=== PATIENT | male | born 1955 | race Caucasian/White ===

== ENCOUNTER 2017-11-17 12:49 | Inpatient (IN) | payer OTHER ==
[~2017-11-17 12:49] MED LIST: ATROPINE 1 MG/10 ML SYRINGE; EPINEPHrine 0.1 MG/ML SYG
[2017-11-17] MEDS ORDERED: ONDANSETRON 4 MG INJ IV (14:00)
[2017-11-17] MEDS ORDERED: NACL 0.9% 3 ML SYG IV (14:00)
[2017-11-17] MEDS ORDERED: hydrALAzine 20 MG INJ IV (14:00)
[2017-11-17 15:26] LABS: CREATINE KINASE 107 IU/L (23-200)
[2017-11-17 15:38] LABS: CK INDEX 3.5; CK-MB 3.71 ng/ml (0.0-2.4); TROPONIN-I < 0.012 ng/ml (0.000-0.120)
[2017-11-17] MEDS: METHYLPREDNISOLONE 125 MG INJ IV ×2 (16:06→21:49)
[2017-11-17] MEDS: ALBUTEROL 0.083% (NEB) 2.5 MG/3 ML AMP HHN ×2 (17:00→21:18)
[2017-11-17 18:53] LABS: AMPHETAMINE/METHAMPHETAMINE NEGATIVE (NEGATIVE); BARBITURATES NEGATIVE (NEGATIVE); BENZODIAZEPINES NEGATIVE (NEGATIVE); CANNABINOIDS NEGATIVE (NEGATIVE); COCAINE NEGATIVE (NEGATIVE); OPIATES NEGATIVE (NEGATIVE)
[2017-11-17] MEDS: FAMOTIDINE 20 MG TAB PO (21:47)
[2017-11-18] MEDS: ALBUTEROL 0.083% (NEB) 2.5 MG/3 ML AMP HHN ×6 (01:31→21:01)
[2017-11-18] MEDS: METHYLPREDNISOLONE 125 MG INJ IV ×2 (05:51→21:57)
[2017-11-18 07:15] LABS: ADD MAN DIFF? NO
[2017-11-18 07:19] LABS: BASOPHILS % 0.1 % (0.0-2.0); HEMATOCRIT 44.8 % (42.0-52.0); HEMOGLOBIN 15.4 g/dl (14.0-18.0); LYMPHOCYTES # 1.4 10^3/ul (0.8-2.9); LYMPHOCYTES % 7.2 % (15.0-51.0); MEAN CORPUSCULAR HEMOGLOBIN 32.2 pg (29.0-33.0); MEAN CORPUSCULAR HGB CONC 34.4 g/dl (32.0-37.0); MEAN CORPUSCULAR VOLUME 93.5 fl (82.0-101.0); MEAN PLATELET VOLUME 10.1 fl (7.4-10.4); MONOCYTE # 0.9 10^3/ul (0.3-0.9); MONOCYTES % 4.3 % (0.0-11.0); NEUTROPHIL # 17.5 10^3/ul (1.6-7.5); NEUTROPHILS % 87.6 % (39.0-77.0); PLATELET COUNT 266 10^3/UL (140-415); RED BLOOD COUNT 4.79 10^6/ul (4.70-6.10); RED CELL DISTRIBUTION WIDTH 13.7 % (11.5-14.5)
[2017-11-18 07:34] LABS: HEMOGLOBIN A1C 5.5 % (0-5.9)
[2017-11-18 07:40] LABS: INR 0.88; PT RATIO 0.9
[2017-11-18 07:41] LABS: PARTIAL THROMBOPLASTIN TIME 24.2 Sec (25.0-35.0)
[2017-11-18 07:51] LABS: ALANINE AMINOTRANSFERASE 22 IU/L (13-69); ALBUMIN 3.7 g/dl (3.3-4.9); ALKALINE PHOSPHATASE 45 IU/L (42-121); ANION GAP 8 (8-16); ASPARTATE AMINO TRANSFERASE 24 IU/L (15-46); BILIRUBIN,INDIRECT 0.2 mg/dl (0-1.1); BILIRUBIN,TOTAL 0.2 mg/dl (0.2-1.3); BLOOD UREA NITROGEN 13 mg/dl (7-20); CALCIUM 9.2 mg/dl (8.4-10.2); CARBON DIOXIDE 33 mmol/L (21-31); CHLORIDE 100 mmol/L (97-110); CREATININE 0.69 mg/dl (0.61-1.24); GLUCOSE 131 mg/dl (70-220); POTASSIUM 4.3 mmol/L (3.5-5.1); SODIUM 137 mmol/L (135-144)
[2017-11-18 08:12] LABS: FREE T4 (FREE THYROXINE) 0.86 ng/dl (0.78-2.44)
[2017-11-18 08:16] LABS: PHOSPHORUS 3.6 mg/dl (2.5-4.9)
[2017-11-18 08:16] LABS: CHOL/HDL RATIO 1.9 RATIO; CHOLESTEROL 154 mg/dl (100-200); HDL CHOLESTEROL 79 mg/dl (30-78); LDL CHOLESTEROL,CALCULATED 67 mg/dl; MAGNESIUM 1.7 mg/dl (1.7-2.5); TRIGLYCERIDES 40 mg/dl (0-149)
[2017-11-18 08:26] LABS: THYROID STIMULATING HORMONE 0.548 MIU/L (0.465-4.680)
[2017-11-18] MEDS: ENOXAPARIN 40 MG/0.4 ML SYG SC (09:16)
[2017-11-18] MEDS: FAMOTIDINE 20 MG TAB PO (09:16)
[2017-11-18] MEDS: NICOTINE (14 MG/24 HR) PATCH TRANSDERM (09:17)
[2017-11-18 12:28] LABS: CREATINE KINASE 69 IU/L (23-200)
[2017-11-18 12:41] LABS: CK INDEX 4.2; CK-MB 2.91 ng/ml (0.0-2.4); TROPONIN-I < 0.012 ng/ml (0.000-0.120)
[2017-11-18] MEDS: FLUTICASONE/VILANTEROL 200-25 INH DEVICE INH (15:26)
[2017-11-18] MEDS: METHYLPREDNISOLONE 40 MG INJ IV (15:26)
[2017-11-18] MEDS: TIOTROPIUM 18 MCG CAPSULE INHA DEV INH (15:27)
[2017-11-18] MEDS ORDERED: METOPROLOL 5 MG INJ (15:58)
[2017-11-18] MEDS: METOPROLOL 5 MG INJ IV (16:02)
[2017-11-18 16:56] LABS: CREATINE KINASE 157 IU/L (23-200)
[2017-11-18 17:09] LABS: CK INDEX 1.9; TROPONIN-I < 0.012 ng/ml (0.000-0.120)
[2017-11-18] MEDS: PROPOFOL 100 ML IV ×2 (17:09→20:44)
[2017-11-18 17:49] LABS: AADO2 Arterial 40.9 mmHg (7.0-24.0); Allen Test ACCEPTAB; Arterial Base Excess -2.5 mmol/L (-3.0-3); Arterial Blood Gas Oxygen Sat 99.5 mmHG (95.0-98.0); Arterial COHb 0.4 % (0.0-3.0); Arterial Fraction of Oxyhgb 98.7 % (93.0-99.0); Arterial MetHb 0.4 % (0.0-1.5); Arterial Total Hemglobin 15.8 g/dl (12.0-18.0); Arterial pCO2 66.9 mmhg (35-45); Blood Gas Low PEEP Setting 0 cmH2O; MODE VENT - AC; Site Right Radial
[2017-11-18] MEDS: SOD CHLORIDE 0.9% 1,000 ML IV (17:54)
[2017-11-18] MEDS: SOD CHLORIDE 0.9% 100 ML (18:31)
[2017-11-18] MEDS: IOHEXOL 100 ML (18:31)
[2017-11-18] MEDS: LORAZEPAM 2 MG INJ IV (19:44)
[2017-11-18] MEDS: FENTAnyl (DRIP) 1000 mcg/100mL 100 ML IV (20:57)
[2017-11-18 21:46] LABS: AADO2 Arterial 72.8 mmHg (7.0-24.0); Allen Test ACCEPTAB; Arterial Base Excess -0.6 mmol/L (-3.0-3); Arterial Blood Gas Oxygen Sat 97.1 mmHG (95.0-98.0); Arterial COHb 0.3 % (0.0-3.0); Arterial Fraction of Oxyhgb 96.5 % (93.0-99.0); Arterial HCO3 28.1 mmol/L (22.0-26.0); Arterial MetHb 0.3 % (0.0-1.5); Arterial Total Hemglobin 14.6 g/dl (12.0-18.0); Arterial pCO2 63.8 mmhg (35-45); MODE VENT - AC; Site Right Radial
[2017-11-18] MEDS: FAMOTIDINE 20 MG INJ IV (21:58)
[2017-11-19] MEDS: ALBUTEROL 0.083% (NEB) 2.5 MG/3 ML AMP HHN (01:23)
[2017-11-19] MEDS: LORAZEPAM 2 MG INJ IV (02:26)
[2017-11-19] MEDS: ALBUTEROL HFA 8 GM INHALER INH ×5 (04:38→21:07)
[2017-11-19 05:31] LABS: ADD MAN DIFF? NO
[2017-11-19 05:32] LABS: ABNORMAL IP MESSAGE 1; BASOPHILS % 0.1 % (0.0-2.0); HEMATOCRIT 42.1 % (42.0-52.0); HEMOGLOBIN 14.2 g/dl (14.0-18.0); LYMPHOCYTES # 0.5 10^3/ul (0.8-2.9); LYMPHOCYTES % 2.2 % (15.0-51.0); MEAN CORPUSCULAR HEMOGLOBIN 31.6 pg (29.0-33.0); MEAN CORPUSCULAR HGB CONC 33.7 g/dl (32.0-37.0); MEAN CORPUSCULAR VOLUME 93.6 fl (82.0-101.0); MEAN PLATELET VOLUME 10.1 fl (7.4-10.4); MONOCYTE # 0.9 10^3/ul (0.3-0.9); NEUTROPHIL # 20.1 10^3/ul (1.6-7.5); NEUTROPHILS % 92.9 % (39.0-77.0); PLATELET COUNT 229 10^3/UL (140-415); POSITIVE DIFF @See below; RED CELL DISTRIBUTION WIDTH 14.5 % (11.5-14.5)
[2017-11-19 05:32] LABS: WHITE BLOOD COUNT 21.6 10^3/ul (4.8-10.8)
[2017-11-19 06:11] LABS: ALANINE AMINOTRANSFERASE 42 IU/L (13-69); ALBUMIN 3.3 g/dl (3.3-4.9); ALBUMIN/GLOBULIN RATIO 1.37; ALKALINE PHOSPHATASE 38 IU/L (42-121); ANION GAP 14 (8-16); ASPARTATE AMINO TRANSFERASE 52 IU/L (15-46); BILIRUBIN,INDIRECT 0.2 mg/dl (0-1.1); BILIRUBIN,TOTAL 0.2 mg/dl (0.2-1.3); BLOOD UREA NITROGEN 17 mg/dl (7-20); CALCIUM 8.6 mg/dl (8.4-10.2); CARBON DIOXIDE 30 mmol/L (21-31); CHLORIDE 99 mmol/L (97-110); CREATININE 0.84 mg/dl (0.61-1.24); GLUCOSE 134 mg/dl (70-220); SODIUM 139 mmol/L (135-144); TOTAL PROTEIN 5.7 g/dl (6.1-8.1)
[2017-11-19 06:17] LABS: MAGNESIUM 1.9 mg/dl (1.7-2.5)
[2017-11-19 06:17] LABS: PHOSPHORUS 4.5 mg/dl (2.5-4.9)
[2017-11-19 06:23] LABS: TROPONIN-I 0.087 ng/ml (0.000-0.120)
[2017-11-19] MEDS: METHYLPREDNISOLONE 125 MG INJ IV ×3 (07:00→21:37)
[2017-11-19] MEDS: SOD CHLORIDE 0.9% 1,000 ML IV ×2 (07:00→17:53)
[2017-11-19] MEDS: FAMOTIDINE 20 MG INJ IV ×2 (08:29→21:37)
[2017-11-19] MEDS: NICOTINE (14 MG/24 HR) PATCH TRANSDERM (08:33)
[2017-11-19] MEDS: ENOXAPARIN 40 MG/0.4 ML SYG SC (08:34)
[2017-11-19 09:02] LABS: AADO2 Arterial 107.7 mmHg (7.0-24.0); Arterial Blood Gas Oxygen Sat 94.9 mmHG (95.0-98.0); Arterial COHb 0.6 % (0.0-3.0); Arterial Fraction of Oxyhgb 94.1 % (93.0-99.0); Arterial HCO3 30.1 mmol/L (22.0-26.0); Arterial MetHb 0.2 % (0.0-1.5); Arterial pCO2 56.2 mmhg (35-45); MODE VENT - AC; Site Right Brachial
[2017-11-19] MEDS: PROPOFOL 100 ML IV ×2 (11:37→19:26)
[2017-11-19] MEDS ORDERED: LIDOCAINE 1% (MPF) 5 ML VIAL SC (12:30)
[2017-11-19] MEDS ORDERED: BALSAM PERU/CASTOR OIL 60 GM TUBE TOP (21:00)
[2017-11-20] MEDS: ALBUTEROL HFA 8 GM INHALER INH ×6 (00:57→20:33)
[2017-11-20] MEDS: PROPOFOL 100 ML IV ×3 (05:26→19:12)
[2017-11-20 05:50] LABS: ADD MAN DIFF? NO
[2017-11-20 05:58] LABS: BASOPHILS % 0.1 % (0.0-2.0); HEMATOCRIT 41.3 % (42.0-52.0); HEMOGLOBIN 13.6 g/dl (14.0-18.0); LYMPHOCYTES % 4.5 % (15.0-51.0); MEAN CORPUSCULAR HEMOGLOBIN 31.7 pg (29.0-33.0); MEAN CORPUSCULAR HGB CONC 32.9 g/dl (32.0-37.0); MEAN CORPUSCULAR VOLUME 96.3 fl (82.0-101.0); MEAN PLATELET VOLUME 11.1 fl (7.4-10.4); MONOCYTE # 1.4 10^3/ul (0.3-0.9); MONOCYTES % 6.7 % (0.0-11.0); NEUTROPHIL # 18.4 10^3/ul (1.6-7.5); NEUTROPHILS % 87.8 % (39.0-77.0); PLATELET COUNT 159 10^3/UL (140-415); RED BLOOD COUNT 4.29 10^6/ul (4.70-6.10); RED CELL DISTRIBUTION WIDTH 14.9 % (11.5-14.5)
[2017-11-20] MEDS: METHYLPREDNISOLONE 125 MG INJ IV ×3 (06:02→21:35)
[2017-11-20] MEDS: FENTAnyl (DRIP) 1000 mcg/100mL 100 ML IV (06:13)
[2017-11-20 06:29] LABS: ALANINE AMINOTRANSFERASE 38 IU/L (13-69); ALBUMIN 2.8 g/dl (3.3-4.9); ALBUMIN/GLOBULIN RATIO 1.16; ALKALINE PHOSPHATASE 31 IU/L (42-121); ANION GAP 9 (8-16); ASPARTATE AMINO TRANSFERASE 41 IU/L (15-46); BILIRUBIN,INDIRECT 0.1 mg/dl (0-1.1); BILIRUBIN,TOTAL 0.1 mg/dl (0.2-1.3); BLOOD UREA NITROGEN 18 mg/dl (7-20); CALCIUM 8.3 mg/dl (8.4-10.2); CARBON DIOXIDE 31 mmol/L (21-31); CHLORIDE 103 mmol/L (97-110); CREATININE 0.65 mg/dl (0.61-1.24); GLUCOSE 111 mg/dl (70-220); POTASSIUM 4.8 mmol/L (3.5-5.1); SODIUM 138 mmol/L (135-144); TOTAL PROTEIN 5.2 g/dl (6.1-8.1)
[2017-11-20 06:38] LABS: PHOSPHORUS 3.6 mg/dl (2.5-4.9)
[2017-11-20 06:47] LABS: TROPONIN-I 0.025 ng/ml (0.000-0.120)
[2017-11-20] MEDS: FAMOTIDINE 20 MG INJ IV ×2 (07:59→21:35)
[2017-11-20] MEDS: NICOTINE (14 MG/24 HR) PATCH TRANSDERM (07:59)
[2017-11-20] MEDS: SOD CHLORIDE 0.9% 1,000 ML IV ×2 (08:00→21:37)
[2017-11-20] MEDS: ENOXAPARIN 40 MG/0.4 ML SYG SC (08:01)
[2017-11-20] MEDS ORDERED: COLLAGENASE 5 GM (UD JAR) TOP (09:00)
[2017-11-20] MEDS: DOCUSATE SODIUM 10 MG/ML (10ML CUP) NGT ×2 (13:30→21:35)
[2017-11-20] MEDS ORDERED: POLYETHYLENE GLYCOL 17 GM PACKET NGT (13:30)
[2017-11-20] MEDS: LORAZEPAM 2 MG INJ IV ×2 (15:15→23:24)
[2017-11-20] MEDS: IPRATROPIUM (NEB) 0.5 MG/2.5 ML AMP HHN ×2 (17:03→20:22)
[2017-11-21] MEDS: ALBUTEROL HFA 8 GM INHALER INH ×6 (01:31→21:43)
[2017-11-21] MEDS: IPRATROPIUM (NEB) 0.5 MG/2.5 ML AMP HHN ×4 (01:31→19:29)
[2017-11-21] MEDS: PROPOFOL 100 ML IV ×4 (02:03→22:31)
[2017-11-21] MEDS: SOD CHLORIDE 0.9% 1,000 ML IV (02:03)
[2017-11-21 05:19] LABS: ADD MAN DIFF? NO
[2017-11-21 05:28] LABS: BASOPHILS % 0.1 % (0.0-2.0); HEMATOCRIT 43.7 % (42.0-52.0); HEMOGLOBIN 14.4 g/dl (14.0-18.0); LYMPHOCYTES # 0.8 10^3/ul (0.8-2.9); LYMPHOCYTES % 4.8 % (15.0-51.0); MEAN CORPUSCULAR HEMOGLOBIN 31.8 pg (29.0-33.0); MEAN CORPUSCULAR VOLUME 96.5 fl (82.0-101.0); MONOCYTE # 1.1 10^3/ul (0.3-0.9); MONOCYTES % 6.5 % (0.0-11.0); NEUTROPHIL # 15.2 10^3/ul (1.6-7.5); PLATELET COUNT 199 10^3/UL (140-415); RED BLOOD COUNT 4.53 10^6/ul (4.70-6.10); RED CELL DISTRIBUTION WIDTH 14.5 % (11.5-14.5)
[2017-11-21 05:28] LABS: WHITE BLOOD COUNT 17.3 10^3/ul (4.8-10.8)
[2017-11-21 05:53] LABS: ALANINE AMINOTRANSFERASE 37 IU/L (13-69); ALBUMIN/GLOBULIN RATIO 1.25; ALKALINE PHOSPHATASE 36 IU/L (42-121); ANION GAP 8 (8-16); ASPARTATE AMINO TRANSFERASE 32 IU/L (15-46); BILIRUBIN,INDIRECT 0.1 mg/dl (0-1.1); BILIRUBIN,TOTAL 0.1 mg/dl (0.2-1.3); BLOOD UREA NITROGEN 21 mg/dl (7-20); CALCIUM 8.5 mg/dl (8.4-10.2); CARBON DIOXIDE 32 mmol/L (21-31); CHLORIDE 104 mmol/L (97-110); CREATININE 0.69 mg/dl (0.61-1.24); GLUCOSE 133 mg/dl (70-220); POTASSIUM 4.1 mmol/L (3.5-5.1); SODIUM 140 mmol/L (135-144); TOTAL PROTEIN 5.4 g/dl (6.1-8.1)
[2017-11-21 06:10] LABS: MAGNESIUM 1.8 mg/dl (1.7-2.5)
[2017-11-21 06:10] LABS: PHOSPHORUS 2.6 mg/dl (2.5-4.9)
[2017-11-21] MEDS: METHYLPREDNISOLONE 125 MG INJ IV ×3 (06:46→21:32)
[2017-11-21] MEDS: FAMOTIDINE 20 MG INJ IV ×2 (08:39→21:31)
[2017-11-21] MEDS: DOCUSATE SODIUM 10 MG/ML (10ML CUP) NGT ×2 (08:39→21:31)
[2017-11-21] MEDS: NICOTINE (14 MG/24 HR) PATCH TRANSDERM (08:41)
[2017-11-21] MEDS: AZITHROMYCIN 500MG/NS (PMX) 250 ML IVPB (11:22)
[2017-11-21] MEDS: AMLODIPINE 5 MG TAB GTB (11:22)
[2017-11-21] MEDS: IPRATROPIUM (HFA) 12.9 GM INHALER INH (21:00)
[2017-11-22] MEDS: ALBUTEROL HFA 8 GM INHALER INH ×6 (01:31→21:08)
[2017-11-22] MEDS: IPRATROPIUM (HFA) 12.9 GM INHALER INH ×4 (01:31→19:21)
[2017-11-22] MEDS: LORAZEPAM 2 MG INJ IV (04:21)
[2017-11-22] MEDS: PROPOFOL 100 ML IV ×2 (04:21→16:15)
[2017-11-22 05:09] LABS: ADD MAN DIFF? NO
[2017-11-22 05:13] LABS: WHITE BLOOD COUNT 17.1 10^3/ul (4.8-10.8)
[2017-11-22 05:13] LABS: BASOPHILS % 0.1 % (0.0-2.0); HEMATOCRIT 40.1 % (42.0-52.0); HEMOGLOBIN 13.7 g/dl (14.0-18.0); LYMPHOCYTES # 0.8 10^3/ul (0.8-2.9); LYMPHOCYTES % 4.4 % (15.0-51.0); MEAN CORPUSCULAR HEMOGLOBIN 31.9 pg (29.0-33.0); MEAN CORPUSCULAR HGB CONC 34.2 g/dl (32.0-37.0); MEAN CORPUSCULAR VOLUME 93.3 fl (82.0-101.0); MEAN PLATELET VOLUME 10.5 fl (7.4-10.4); MONOCYTE # 1.4 10^3/ul (0.3-0.9); NEUTROPHIL # 14.9 10^3/ul (1.6-7.5); NEUTROPHILS % 86.8 % (39.0-77.0); PLATELET COUNT 240 10^3/UL (140-415); RED CELL DISTRIBUTION WIDTH 14.1 % (11.5-14.5)
[2017-11-22 06:07] LABS: MAGNESIUM 1.7 mg/dl (1.7-2.5)
[2017-11-22 06:07] LABS: PHOSPHORUS 2.9 mg/dl (2.5-4.9)
[2017-11-22 06:08] LABS: ALBUMIN 2.9 g/dl (3.3-4.9); ALBUMIN/GLOBULIN RATIO 1.26; ALKALINE PHOSPHATASE 31 IU/L (42-121); ANION GAP 6 (8-16); ASPARTATE AMINO TRANSFERASE 27 IU/L (15-46); BILIRUBIN,INDIRECT 0.2 mg/dl (0-1.1); BILIRUBIN,TOTAL 0.2 mg/dl (0.2-1.3); BLOOD UREA NITROGEN 24 mg/dl (7-20); CALCIUM 8.5 mg/dl (8.4-10.2); CARBON DIOXIDE 33 mmol/L (21-31); CHLORIDE 104 mmol/L (97-110); GLUCOSE 142 mg/dl (70-220); SODIUM 139 mmol/L (135-144); TOTAL PROTEIN 5.2 g/dl (6.1-8.1)
[2017-11-22] MEDS: METHYLPREDNISOLONE 125 MG INJ IV ×3 (07:02→21:30)
[2017-11-22 07:26] LABS: ALANINE AMINOTRANSFERASE 38 IU/L (13-69)
[2017-11-22] MEDS ORDERED: DEXMEDETOMIDINE HCL 200 MCG in SOD CHLORIDE 0.9% 48 ML IV (09:00)
[2017-11-22] MEDS: NICOTINE (14 MG/24 HR) PATCH TRANSDERM (09:24)
[2017-11-22] MEDS: DOCUSATE SODIUM 10 MG/ML (10ML CUP) NGT ×2 (09:24→21:30)
[2017-11-22] MEDS: FAMOTIDINE 20 MG INJ IV ×2 (09:25→21:30)
[2017-11-22] MEDS: AMLODIPINE 5 MG TAB GTB (09:25)
[2017-11-22] MEDS: DEXMEDETOMIDINE HCL 200 MCG in SOD CHLORIDE 0.9% 48 ML IV ×3 (10:55→21:31)
[2017-11-22] MEDS: AZITHROMYCIN 500MG/NS (PMX) 250 ML IVPB (12:34)
[2017-11-22 12:47] LABS: AADO2 Arterial 101.2 mmHg (7.0-24.0); Allen Test ACCEPTAB; Arterial Base Excess 3.1 mmol/L (-3.0-3); Arterial Blood Gas Oxygen Sat 94.7 mmHG (95.0-98.0); Arterial COHb 0.7 % (0.0-3.0); Arterial Fraction of Oxyhgb 93.9 % (93.0-99.0); Arterial MetHb 0.1 % (0.0-1.5); Arterial Total Hemglobin 14.3 g/dl (12.0-18.0); Arterial pCO2 38.6 mmhg (35-45); Blood Gas PS 10; MODE VENT - CPAP; Site Right Radial
[2017-11-23] MEDS: IPRATROPIUM (HFA) 12.9 GM INHALER INH ×3 (01:06→14:06)
[2017-11-23] MEDS: ALBUTEROL HFA 8 GM INHALER INH ×4 (01:06→14:06)
[2017-11-23 05:08] LABS: ADD MAN DIFF? NO
[2017-11-23 05:20] LABS: BASOPHILS % 0.1 % (0.0-2.0); HEMATOCRIT 42.6 % (42.0-52.0); HEMOGLOBIN 14.3 g/dl (14.0-18.0); LYMPHOCYTES # 0.9 10^3/ul (0.8-2.9); LYMPHOCYTES % 7.1 % (15.0-51.0); MEAN CORPUSCULAR HEMOGLOBIN 31.5 pg (29.0-33.0); MEAN CORPUSCULAR HGB CONC 33.6 g/dl (32.0-37.0); MEAN CORPUSCULAR VOLUME 93.8 fl (82.0-101.0); MEAN PLATELET VOLUME 10.5 fl (7.4-10.4); MONOCYTE # 0.9 10^3/ul (0.3-0.9); MONOCYTES % 6.8 % (0.0-11.0); NEUTROPHIL # 10.7 10^3/ul (1.6-7.5); NEUTROPHILS % 85.4 % (39.0-77.0); PLATELET COUNT 235 10^3/UL (140-415); RED BLOOD COUNT 4.54 10^6/ul (4.70-6.10); RED CELL DISTRIBUTION WIDTH 13.9 % (11.5-14.5)
[2017-11-23 05:20] LABS: WHITE BLOOD COUNT 12.5 10^3/ul (4.8-10.8)
[2017-11-23 06:06] LABS: PHOSPHORUS 3.8 mg/dl (2.5-4.9)
[2017-11-23 06:06] LABS: MAGNESIUM 1.7 mg/dl (1.7-2.5)
[2017-11-23 06:10] LABS: ANION GAP 7 (8-16); BLOOD UREA NITROGEN 25 mg/dl (7-20); CALCIUM 8.5 mg/dl (8.4-10.2); CARBON DIOXIDE 32 mmol/L (21-31); CHLORIDE 103 mmol/L (97-110); GLUCOSE 187 mg/dl (70-220); POTASSIUM 4.1 mmol/L (3.5-5.1); SODIUM 138 mmol/L (135-144)
[2017-11-23] MEDS: METHYLPREDNISOLONE 125 MG INJ IV ×3 (07:03→21:34)
[2017-11-23] MEDS: NICOTINE (14 MG/24 HR) PATCH TRANSDERM (09:47)
[2017-11-23] MEDS: DOCUSATE SODIUM 10 MG/ML (10ML CUP) NGT ×2 (09:48→20:48)
[2017-11-23] MEDS: FUROSEMIDE 40 MG INJ IV (09:48)
[2017-11-23] MEDS: AMLODIPINE 5 MG TAB GTB (09:48)
[2017-11-23] MEDS: FAMOTIDINE 20 MG INJ IV ×2 (09:48→21:33)
[2017-11-23] MEDS: AZITHROMYCIN 500MG/NS (PMX) 250 ML IVPB (12:16)
[2017-11-23 13:32] LABS: AADO2 Arterial 71.7 mmHg (7.0-24.0); Allen Test ACCEPTAB; Arterial Base Excess 6.1 mmol/L (-3.0-3); Arterial Blood Gas Oxygen Sat 96.6 mmHG (95.0-98.0); Arterial COHb 0.4 % (0.0-3.0); Arterial Fraction of Oxyhgb 96.1 % (93.0-99.0); Arterial HCO3 31.6 mmol/L (22.0-26.0); Arterial MetHb 0.1 % (0.0-1.5); Arterial pCO2 48.3 mmhg (35-45); Blood Gas PS 10; MODE VENT - CPAP; Site Right Radial
[2017-11-23] MEDS: MAGNESIUM SULFATE 1 GM/D5W 100 ML IVPB (14:30)
[2017-11-23] MEDS: ALBUTEROL 0.083% (NEB) 2.5 MG/3 ML AMP HHN (15:37)
[2017-11-23] MEDS: ALBUTEROL/IPRATROPIUM (NEB) 3 ML AMP HHN (19:56)
[2017-11-23] MEDS: morphine 2 MG INJ IV (21:54)
[2017-11-24] MEDS: ALBUTEROL/IPRATROPIUM (NEB) 3 ML AMP HHN ×4 (01:46→19:58)
[2017-11-24 05:41] LABS: ADD MAN DIFF? NO
[2017-11-24 05:53] LABS: BASOPHILS % 0.1 % (0.0-2.0); HEMATOCRIT 42.1 % (42.0-52.0); HEMOGLOBIN 14.4 g/dl (14.0-18.0); LYMPHOCYTES # 0.9 10^3/ul (0.8-2.9); LYMPHOCYTES % 5.8 % (15.0-51.0); MEAN CORPUSCULAR HEMOGLOBIN 31.5 pg (29.0-33.0); MEAN CORPUSCULAR HGB CONC 34.2 g/dl (32.0-37.0); MEAN CORPUSCULAR VOLUME 92.1 fl (82.0-101.0); MEAN PLATELET VOLUME 10.3 fl (7.4-10.4); MONOCYTE # 1.2 10^3/ul (0.3-0.9); NEUTROPHIL # 13.3 10^3/ul (1.6-7.5); NEUTROPHILS % 85.1 % (39.0-77.0); PLATELET COUNT 297 10^3/UL (140-415); RED BLOOD COUNT 4.57 10^6/ul (4.70-6.10); RED CELL DISTRIBUTION WIDTH 13.6 % (11.5-14.5)
[2017-11-24 05:53] LABS: WHITE BLOOD COUNT 15.6 10^3/ul (4.8-10.8)
[2017-11-24] MEDS: METHYLPREDNISOLONE 125 MG INJ IV ×3 (06:20→20:40)
[2017-11-24 06:51] LABS: ANION GAP 9 (8-16); BLOOD UREA NITROGEN 22 mg/dl (7-20); CALCIUM 8.8 mg/dl (8.4-10.2); CARBON DIOXIDE 38 mmol/L (21-31); CHLORIDE 95 mmol/L (97-110); CREATININE 0.59 mg/dl (0.61-1.24); GLUCOSE 123 mg/dl (70-220); MAGNESIUM 1.7 mg/dl (1.7-2.5); PHOSPHORUS 4.7 mg/dl (2.5-4.9); SODIUM 138 mmol/L (135-144)
[2017-11-24] MEDS: NICOTINE (14 MG/24 HR) PATCH TRANSDERM (09:04)
[2017-11-24] MEDS: AMLODIPINE 5 MG TAB GTB (09:05)
[2017-11-24] MEDS: FAMOTIDINE 20 MG TAB PO ×2 (09:10→20:39)
[2017-11-24] MEDS: AZITHROMYCIN 500MG/NS (PMX) 250 ML IVPB (10:52)
[2017-11-24] MEDS: MAGNESIUM SULFATE 2 GM/50 ML 50 ML IVPB (11:59)
[2017-11-24] MEDS: DOCUSATE SODIUM 100 MG CAP PO (20:39)
[2017-11-25] MEDS: ALBUTEROL/IPRATROPIUM (NEB) 3 ML AMP HHN ×4 (01:57→20:07)
[2017-11-25 06:18] LABS: ADD MAN DIFF? NO
[2017-11-25 06:27] LABS: WHITE BLOOD COUNT 19.1 10^3/ul (4.8-10.8)
[2017-11-25 06:27] LABS: ABNORMAL IP MESSAGE 1; BASOPHILS % 0.1 % (0.0-2.0); HEMATOCRIT 39.4 % (42.0-52.0); HEMOGLOBIN 13.9 g/dl (14.0-18.0); LYMPHOCYTES # 1.2 10^3/ul (0.8-2.9); LYMPHOCYTES % 6.4 % (15.0-51.0); MEAN CORPUSCULAR HGB CONC 35.3 g/dl (32.0-37.0); MEAN CORPUSCULAR VOLUME 90.8 fl (82.0-101.0); MEAN PLATELET VOLUME 9.9 fl (7.4-10.4); MONOCYTE # 1.8 10^3/ul (0.3-0.9); MONOCYTES % 9.4 % (0.0-11.0); NEUTROPHIL # 15.8 10^3/ul (1.6-7.5); NEUTROPHILS % 82.9 % (39.0-77.0); PLATELET COUNT 340 10^3/UL (140-415); POSITIVE DIFF @See below; RED BLOOD COUNT 4.34 10^6/ul (4.70-6.10); RED CELL DISTRIBUTION WIDTH 13.2 % (11.5-14.5)
[2017-11-25] MEDS: NICOTINE (14 MG/24 HR) PATCH TRANSDERM (08:15)
[2017-11-25] MEDS: AMLODIPINE 5 MG TAB GTB (08:16)
[2017-11-25] MEDS: METHYLPREDNISOLONE 125 MG INJ IV (08:16)
[2017-11-25] MEDS: FAMOTIDINE 20 MG TAB PO ×2 (08:16→21:09)
[2017-11-25] MEDS: DOCUSATE SODIUM 100 MG CAP PO ×2 (08:16→21:09)
[2017-11-25] MEDS: ENOXAPARIN 40 MG/0.4 ML SYG SC (08:17)
[2017-11-25 09:17] LABS: ANION GAP 10 (8-16); BLOOD UREA NITROGEN 18 mg/dl (7-20); CALCIUM 8.7 mg/dl (8.4-10.2); CARBON DIOXIDE 37 mmol/L (21-31); CHLORIDE 94 mmol/L (97-110); GLUCOSE 103 mg/dl (70-220); POTASSIUM 3.6 mmol/L (3.5-5.1); SODIUM 137 mmol/L (135-144)
[2017-11-25] MEDS: BUDESONIDE (NEB) 0.5MG/2ML AMP HHN ×2 (09:46→20:00)
[2017-11-25] MEDS: AZITHROMYCIN 500MG/NS (PMX) 250 ML IVPB (12:17)
[2017-11-25] MEDS: ACETAMINOPHEN 325 MG TAB PO (12:33)
[2017-11-26] MEDS: ALBUTEROL/IPRATROPIUM (NEB) 3 ML AMP HHN ×4 (01:22→20:08)
[2017-11-26 05:43] LABS: ADD MAN DIFF? NO
[2017-11-26 05:51] LABS: WHITE BLOOD COUNT 19.7 10^3/ul (4.8-10.8)
[2017-11-26 05:51] LABS: ABNORMAL IP MESSAGE 1; BASOPHILS % 0.2 % (0.0-2.0); EOSINOPHILS # 0.1 10^3/ul (0.0-0.5); EOSINOPHILS % 0.5 % (0.0-7.0); HEMOGLOBIN 14.3 g/dl (14.0-18.0); LYMPHOCYTES % 15.1 % (15.0-51.0); MEAN CORPUSCULAR HEMOGLOBIN 31.8 pg (29.0-33.0); MEAN CORPUSCULAR HGB CONC 34.9 g/dl (32.0-37.0); MEAN CORPUSCULAR VOLUME 91.3 fl (82.0-101.0); MEAN PLATELET VOLUME 9.9 fl (7.4-10.4); MONOCYTE # 2.3 10^3/ul (0.3-0.9); MONOCYTES % 11.6 % (0.0-11.0); NEUTROPHIL # 14.1 10^3/ul (1.6-7.5); NEUTROPHILS % 71.3 % (39.0-77.0); PLATELET COUNT 362 10^3/UL (140-415); POSITIVE DIFF @See below; RED BLOOD COUNT 4.49 10^6/ul (4.70-6.10); RED CELL DISTRIBUTION WIDTH 13.3 % (11.5-14.5)
[2017-11-26 06:22] LABS: ANION GAP 6 (8-16); BLOOD UREA NITROGEN 16 mg/dl (7-20); CALCIUM 8.2 mg/dl (8.4-10.2); CARBON DIOXIDE 38 mmol/L (21-31); CHLORIDE 96 mmol/L (97-110); CREATININE 0.63 mg/dl (0.61-1.24); GLUCOSE 79 mg/dl (70-220); SODIUM 137 mmol/L (135-144)
[2017-11-26 07:17] LABS: POTASSIUM 2.9 mmol/L (3.5-5.1)
[2017-11-26] MEDS: BUDESONIDE (NEB) 0.5MG/2ML AMP HHN ×2 (07:50→20:00)
[2017-11-26 08:34] LABS: MAGNESIUM 1.7 mg/dl (1.7-2.5)
[2017-11-26] MEDS ORDERED: METHYLPREDNISOLONE 125 MG INJ IV (09:00)
[2017-11-26] MEDS: DOCUSATE SODIUM 100 MG CAP PO ×2 (09:43→20:40)
[2017-11-26] MEDS: FAMOTIDINE 20 MG TAB PO ×2 (09:44→20:40)
[2017-11-26] MEDS: AMLODIPINE 5 MG TAB GTB (09:44)
[2017-11-26] MEDS: NICOTINE (14 MG/24 HR) PATCH TRANSDERM (09:44)
[2017-11-26] MEDS: POTASSIUM CHLORIDE 100 ML IVPB (09:50)
[2017-11-26] MEDS: ENOXAPARIN 40 MG/0.4 ML SYG SC (10:07)
[2017-11-26] MEDS: predniSONE 10 MG TAB PO (11:55)
[2017-11-26] MEDS: POTASSIUM CHLORIDE (SR) 20 MEQ TAB PO (11:56)
[2017-11-26] MEDS: FUROSEMIDE 40 MG INJ IV (11:57)
[2017-11-27] MEDS: ALBUTEROL/IPRATROPIUM (NEB) 3 ML AMP HHN ×4 (01:34→19:43)
[2017-11-27 05:01] LABS: WHITE BLOOD COUNT 24.4 10^3/ul (4.8-10.8)
[2017-11-27 05:01] LABS: ABNORMAL IP MESSAGE 1; BASOPHILS % 0.1 % (0.0-2.0); EOSINOPHILS # 0.1 10^3/ul (0.0-0.5); EOSINOPHILS % 0.6 % (0.0-7.0); HEMATOCRIT 40.4 % (42.0-52.0); HEMOGLOBIN 13.8 g/dl (14.0-18.0); LYMPHOCYTES # 2.6 10^3/ul (0.8-2.9); LYMPHOCYTES % 10.8 % (15.0-51.0); MEAN CORPUSCULAR HEMOGLOBIN 31.5 pg (29.0-33.0); MEAN CORPUSCULAR HGB CONC 34.2 g/dl (32.0-37.0); MEAN CORPUSCULAR VOLUME 92.2 fl (82.0-101.0); MEAN PLATELET VOLUME 9.6 fl (7.4-10.4); MONOCYTE # 2.2 10^3/ul (0.3-0.9); MONOCYTES % 8.8 % (0.0-11.0); NEUTROPHIL # 19.2 10^3/ul (1.6-7.5); NEUTROPHILS % 78.7 % (39.0-77.0); PLATELET COUNT 347 10^3/UL (140-415); POSITIVE DIFF @See below; RED BLOOD COUNT 4.38 10^6/ul (4.70-6.10); RED CELL DISTRIBUTION WIDTH 13.3 % (11.5-14.5)
[2017-11-27 05:03] LABS: ADD MAN DIFF? NO
[2017-11-27 05:59] LABS: ANION GAP 7 (8-16); BLOOD UREA NITROGEN 18 mg/dl (7-20); CALCIUM 8.7 mg/dl (8.4-10.2); CARBON DIOXIDE 37 mmol/L (21-31); CHLORIDE 95 mmol/L (97-110); CREATININE 0.63 mg/dl (0.61-1.24); GLUCOSE 83 mg/dl (70-220); POTASSIUM 3.2 mmol/L (3.5-5.1); SODIUM 136 mmol/L (135-144)
[2017-11-27] MEDS: predniSONE 10 MG TAB PO (08:55)
[2017-11-27] MEDS: FAMOTIDINE 20 MG TAB PO ×2 (08:55→21:23)
[2017-11-27] MEDS: AMLODIPINE 5 MG TAB GTB (08:55)
[2017-11-27] MEDS: DOCUSATE SODIUM 100 MG CAP PO ×2 (08:55→21:23)
[2017-11-27] MEDS: FUROSEMIDE 40 MG INJ IV (08:55)
[2017-11-27] MEDS: NICOTINE (14 MG/24 HR) PATCH TRANSDERM (08:55)
[2017-11-27] MEDS: ENOXAPARIN 40 MG/0.4 ML SYG SC (09:01)
[2017-11-27] MEDS: BUDESONIDE (NEB) 0.5MG/2ML AMP HHN ×2 (09:32→19:43)
[2017-11-28] MEDS: ALBUTEROL/IPRATROPIUM (NEB) 3 ML AMP HHN ×4 (01:02→21:08)
[2017-11-28 06:04] LABS: ADD MAN DIFF? NO
[2017-11-28 06:08] LABS: ABNORMAL IP MESSAGE 1; BASOPHILS % 0.2 % (0.0-2.0); EOSINOPHILS # 0.2 10^3/ul (0.0-0.5); HEMATOCRIT 37.6 % (42.0-52.0); HEMOGLOBIN 13.1 g/dl (14.0-18.0); LYMPHOCYTES # 2.9 10^3/ul (0.8-2.9); LYMPHOCYTES % 15.2 % (15.0-51.0); MEAN CORPUSCULAR HEMOGLOBIN 32.3 pg (29.0-33.0); MEAN CORPUSCULAR HGB CONC 34.8 g/dl (32.0-37.0); MEAN CORPUSCULAR VOLUME 92.6 fl (82.0-101.0); MEAN PLATELET VOLUME 9.4 fl (7.4-10.4); MONOCYTE # 1.8 10^3/ul (0.3-0.9); MONOCYTES % 9.3 % (0.0-11.0); NEUTROPHIL # 14.1 10^3/ul (1.6-7.5); NEUTROPHILS % 73.4 % (39.0-77.0); PLATELET COUNT 341 10^3/UL (140-415); POSITIVE DIFF @See below; RED BLOOD COUNT 4.06 10^6/ul (4.70-6.10); RED CELL DISTRIBUTION WIDTH 13.2 % (11.5-14.5)
[2017-11-28 06:08] LABS: WHITE BLOOD COUNT 19.2 10^3/ul (4.8-10.8)
[2017-11-28 06:55] LABS: ANION GAP 7 (8-16); BLOOD UREA NITROGEN 20 mg/dl (7-20); CALCIUM 8.5 mg/dl (8.4-10.2); CARBON DIOXIDE 35 mmol/L (21-31); CHLORIDE 97 mmol/L (97-110); CREATININE 0.53 mg/dl (0.61-1.24); GLUCOSE 90 mg/dl (70-220); SODIUM 136 mmol/L (135-144)
[2017-11-28] MEDS: BUDESONIDE (NEB) 0.5MG/2ML AMP HHN ×2 (08:24→21:08)
[2017-11-28] MEDS: DOCUSATE SODIUM 100 MG CAP PO ×2 (08:27→20:07)
[2017-11-28] MEDS: FAMOTIDINE 20 MG TAB PO ×2 (08:27→20:07)
[2017-11-28] MEDS: AMLODIPINE 5 MG TAB GTB (08:27)
[2017-11-28] MEDS: NICOTINE (14 MG/24 HR) PATCH TRANSDERM (08:27)
[2017-11-28] MEDS: predniSONE 10 MG TAB PO (08:27)
[2017-11-28] MEDS: ENOXAPARIN 40 MG/0.4 ML SYG SC (08:39)
[2017-11-28] MEDS: POTASSIUM CHLORIDE (SR) 20 MEQ TAB PO (10:10)
[2017-11-29] MEDS: ALBUTEROL/IPRATROPIUM (NEB) 3 ML AMP HHN ×3 (02:00→13:51)
[2017-11-29 06:13] LABS: ADD MAN DIFF? NO
[2017-11-29 06:16] LABS: ABNORMAL IP MESSAGE 1; BASOPHILS % 0.1 % (0.0-2.0); EOSINOPHILS # 0.2 10^3/ul (0.0-0.5); EOSINOPHILS % 1.2 % (0.0-7.0); HEMATOCRIT 36.7 % (42.0-52.0); HEMOGLOBIN 12.4 g/dl (14.0-18.0); LYMPHOCYTES # 2.5 10^3/ul (0.8-2.9); LYMPHOCYTES % 14.6 % (15.0-51.0); MEAN CORPUSCULAR HEMOGLOBIN 31.5 pg (29.0-33.0); MEAN CORPUSCULAR HGB CONC 33.8 g/dl (32.0-37.0); MEAN CORPUSCULAR VOLUME 93.1 fl (82.0-101.0); MEAN PLATELET VOLUME 9.7 fl (7.4-10.4); MONOCYTES % 11.7 % (0.0-11.0); NEUTROPHIL # 12.4 10^3/ul (1.6-7.5); NEUTROPHILS % 71.4 % (39.0-77.0); PLATELET COUNT 361 10^3/UL (140-415); POSITIVE DIFF @See below; RED BLOOD COUNT 3.94 10^6/ul (4.70-6.10); RED CELL DISTRIBUTION WIDTH 13.5 % (11.5-14.5)
[2017-11-29 06:16] LABS: WHITE BLOOD COUNT 17.4 10^3/ul (4.8-10.8)
[2017-11-29 06:46] LABS: ANION GAP 8 (8-16); BLOOD UREA NITROGEN 20 mg/dl (7-20); CALCIUM 8.8 mg/dl (8.4-10.2); CARBON DIOXIDE 35 mmol/L (21-31); CHLORIDE 99 mmol/L (97-110); CREATININE 0.57 mg/dl (0.61-1.24); GLUCOSE 75 mg/dl (70-220); POTASSIUM 4.3 mmol/L (3.5-5.1); SODIUM 138 mmol/L (135-144)
[2017-11-29] MEDS: FAMOTIDINE 20 MG TAB PO (08:18)
[2017-11-29] MEDS: DOCUSATE SODIUM 100 MG CAP PO (08:18)
[2017-11-29] MEDS: NICOTINE (14 MG/24 HR) PATCH TRANSDERM (08:19)
[2017-11-29] MEDS: AMLODIPINE 5 MG TAB GTB (08:19)
[2017-11-29] MEDS: ENOXAPARIN 40 MG/0.4 ML SYG SC (08:22)
[2017-11-29] MEDS: BUDESONIDE (NEB) 0.5MG/2ML AMP HHN ×2 (08:30→08:41)
== END 2017-11-29 14:59 | disposition home health service (06) | DRG 207 ==
LOC: 6WM 11-24 13:15 → TEL 12:49 → ICU 11-18 16:12
PROC: 5A1955Z Respiratory Ventilation, Greater than 96 Consecutive Hours (ICD-10-PCS; principal; 2017-11-18)
PROC: 5A12012 Performance of Cardiac Output, Single, Manual (ICD-10-PCS; 2017-11-18)
PROC: 0BH17EZ Insertion of Endotracheal Airway into Trachea, Via Natural or Artificial Opening (ICD-10-PCS; 2017-11-18)
DX: J44.1 Chronic obstructive pulmonary disease with (acute) exacerbation (principal); I46.9 Cardiac arrest, cause unspecified; J96.22 Acute and chronic respiratory failure with hypercapnia; T38.0X5A Adverse effect of glucocorticoids and synthetic analogues, initial encounter; D72.828 Other elevated white blood cell count; I10 Essential (primary) hypertension; F17.200 Nicotine dependence, unspecified, uncomplicated
CPT/HCPCS: 31500; 36600; 70450; 71045; 71275; 80048; 80053; 80061; 80307; 82550; 82553; 82803; 82962; 83036; 83735; 84100; 84439; 84443; 84484; 85025; 85610; 85730; 92526; 92610; 92950; 93005; 93306; 94002; 94003; 94640; 94664; 94770; 97116; 97162